=== PATIENT | male | born 1995 | race Caucasian/White ===

== ENCOUNTER 2022-10-03 16:44 | Emergency (ER) | payer OTHER, SELFPAY ==
--- NOTE | 2022-10-03 16:46 | ED.URI ---
HPI - URI/Sore Throat General Chief Complaint: Upper Respiratory Infection Stated Complaint: cold flu Time Seen by Provider: 10/03/22 16:46 Source: patient and RN notes reviewed History of Present Illness HPI Narrative: patient is a 27-year-old male who presents to the Urgent Care with complaints of cold and flu-like symptoms. Patient states that he has been sick off and on since July when he had influenza A. States that he has had a negative COVID test at home. Reports of a sore throat for the last 2 days without known fever. Patient has been taking Mucinex, Anton[place] and Robitussin. Patient has not followed up with the primary care doctor. No other acute complaints. No acute distress noted. Patient aware of the plan of care. Some parts of this dictation were generated by voice recognition software and may contain typographical and/or grammatical inaccuracies. Related Data Allergies Allergy/AdvReac Type Severity Reaction Status Date / Time No Known Allergies Allergy Verified 10/03/22 16:50 Review of Systems Review of Systems: CONSTITUTIONAL: Denies fever, chills, or sweats. EYES: Denies visual changes, redness, or discharge. ENT: Denies rhinorrhea, congestion, Otalgia. Reports of sore throat CARDIOVASCULAR: Denies chest pain, palpitations, or edema. RESPIRATORY: reports cough without dyspnea GASTROINTESTINAL: Denies abdominal pain, nausea, vomiting, or diarrhea. GENITOURINARY: Denies dysuria or hematuria. SKIN: Denies rash or itching. MUSCULOSKELETAL: Denies back pain, joint pain, or myalgia. NEUROLOGIC: Denies headache, numbness, or weakness. All other systems reviewed are negative, except as documented in HPI. CONSTITUTIONAL: Denies fever, chills, or sweats. PMFSH Comments At the time of my signature, I reviewed and agree with the nursing past medical, surgical, social, and family history. There is no relevant family history pertinent to the patient complaint. Exam Narrative: GENERAL: This is a well-nourished, well-developed patient, in no apparent distress. HEAD: normocephalic, atraumatic. EYES: PERRL. Sclera clear/white. Vision is grossly intact. EARS: External ears normal, auditory canals clear and without drainage, TMs normal without perforation. Hearing grossly intact. NOSE: External nose normal with no obvious nasal discharge, nares without redness, clear rhinorrhea. THROAT: Mucous membranes moist; mild erythema to posterior pharynx with moderate postnasal drainage NECK: Neck supple, non-tender without lymphadenopathy, masses or thyromegaly. CARDIOVASCULAR: Regular rate and rhythm without murmurs, gallops, or rubs. RESPIRATORY: Clear to auscultation. Breath sounds equal bilaterally. No wheezes, rales, or rhonchi. SKIN: warm, intact with no suspicious lesions or rash, good texture and turgor. NEURO: awake, alert, and oriented to person, place and time. There were no obvious focal neurologic abnormalities. EXTREMITIES: No clubbing, cyanosis, or edema. Course Course Level of Care: Express Care Visit Vital Signs Vital signs: Vital Signs Temperature 98.8 F 10/03/22 16:48 Pulse Rate 71 10/03/22 16:48 Respiratory Rate 16 10/03/22 16:48 Blood Pressure 153/86 H 10/03/22 16:48 Pulse Oximetry 98 10/03/22 16:48 Oxygen Delivery Room Air 10/03/22 16:48 Temperature 98.8 F 10/03/22 16:48 Pulse Rate 71 10/03/22 16:48 Respiratory Rate 16 10/03/22 16:48 Blood Pressure 153/86 H 10/03/22 16:48 Pulse Oximetry 98 10/03/22 16:48 Oxygen Delivery Room Air 10/03/22 16:48 reviewed Patient is informed that they may have pre-hypertension or hypertension based on a blood pressure reading in the department. I recommend the patient call the primary care provider listed on their discharge instructions or a physician of their choice this week to arrange follow-up for further evaluation of possible pre-hypertension or hypertension. MDM - URI/Sore Throat MDM Narrative Me
[2022-10-03 16:48] VITALS: BP 153/86; PULSE 71; RESP 16; TEMP 37.1; O2SAT 98
== END 2022-10-03 17:22 | disposition home or self-care (01) ==
PROVIDERS: Emergency Provider Nurse Practitioner Family
DX: J02.9 Acute pharyngitis, unspecified (principal)
CPT/HCPCS: 87081; 87880; 99213; G0463